=== PATIENT | female | born 1980 | race Caucasian/White ===

== ENCOUNTER 2022-03-24 10:06 | Outpatient (CLI) | payer OTHER, SELFPAY ==
[2022-03-24 14:38] LABS: Cholesterol* 177 mg/dL (90-199); HDL Cholesterol* 61 mg/dL (>=50); LDL Cholesterol Calculated 98 mg/dL (<100); Triglycerides* 91 mg/dL (40-149)
[2022-03-25 15:25] LABS: Chloride* 102 mmol/L (96-114)
[2022-03-25 15:26] LABS: Potassium* 4.7 mmol/L (3.6-5.1); Sodium* 137 mmol/L (135-149)
[2022-03-25 15:28] LABS: Creatinine* 0.9 mg/dL (0.5-1.5); Estimated Glomerular Filt Rate 82 ml/min
[2022-03-25 15:29] LABS: Blood Urea Nitrogen* 21 mg/dL (5-24); Calcium* 9.1 mg/dL (8.4-10.6); Carbon Dioxide* 25 mmol/L (20-32); Glucose* 83 mg/dL (60-115)
== END 2022-03-24 10:07 | disposition home or self-care (01) ==
LOC: LONREF 10:08
PROVIDERS: PCP Family Medicine; Visit Provider Family Medicine
DX: Z01.419 Encounter for gynecological examination (general) (routine) without abnormal findings (principal); Z13.6 Encounter for screening for cardiovascular disorders
CPT/HCPCS: 80048; 80061

== ENCOUNTER 2023-04-15 09:41 | Outpatient (CLI) | payer OTHER, SELFPAY | END 2023-04-15 09:42 | disposition home or self-care (01) | PROVIDERS: PCP Family Medicine; Visit Provider Family Medicine | DX: Z00.00 Encounter for general adult medical examination without abnormal findings (principal); E66.9 Obesity, unspecified; Z13.6 Encounter for screening for cardiovascular disorders; Z13.0 Encounter for screening for diseases of the blood and blood-forming organs and certain disorders involving the immune mechanism; Z13.1 Encounter for screening for diabetes mellitus | CPT/HCPCS: 80048; 80061 ==

== ENCOUNTER 2023-10-27 19:50 | Emergency (ER) | payer OTHER, SELFPAY ==
[2023-10-27 20:05] VITALS: BP 128/85; PULSE 94; RESP 18; TEMP 37.4; O2SAT 97; BMI 34.5
--- NOTE | 2023-10-27 20:21 | CT_ITS ---
Patient: ANGIE VELAZQUEZ Facility:?[facility] Patient ID:?[id number] Site Patient ID:?[id number]. Site :?[id number] Study:?CT-ST Neck W/ 100CC ISOVUE 370-10/27/2023 9:21:24 PM Ordering Physician:LOBITO Final Report: INDICATION: Strep throat. TECHNIQUE: CT images of the neck following intravenous contrast. COMPARISON: None. FINDINGS: Diffuse enlargement and striated enhancement of the palatine tonsils. Slightly more confluent hypoenhancement within the lateral left palatine tonsil (series 2 image 31) may represent edema and/or phlegmon. No discrete peritonsillar abscess. Mild inflammatory stranding in the left parapharyngeal space. There is mild narrowing of the oropharyngeal airway. No retropharyngeal edema. The hypopharynx and larynx are widely patent and without enhancing lesions. No thickening of the epiglottis. No enhancing lesions in the oral cavity or floor of mouth. The parotid and submandibular glands are unremarkable. The thyroid gland is unremarkable. Enlarged bilateral level II lymph nodes demonstrate elongated morphology. Limited images through the brain are without pathologic intracranial enhancement. The paranasal sinuses and mastoid air cells are clear. Multilevel cervical spondylosis. No aggressive osseous lesions. The visualized lungs are clear. IMPRESSION: 1. Diffuse enlargement and striated enhancement of the palatine tonsils, compatible with tonsillitis. Slightly more confluent hypoenhancement within the lateral left palatine tonsil may represent edema and/or phlegmon. No discrete peritonsillar abscess. Mild inflammatory stranding in the left parapharyngeal region. 2. Enlarged bilateral cervical nodes, likely reactive. Please note that all CT scans at this facility use dose modulation, iterative reconstruction, and/or weight-based dosing when appropriate to reduce radiation dose to as low as reasonably achievable. Dictated by Champ King MD @ 10/27/2023 9:31:59 PM Signed by:?Champ King MD @10/27/2023 9:31:59 PM (Electronic Signature)
--- NOTE | 2023-10-27 20:27 | ED.GENADULT ---
HPI - General Adult General Date Seen: 10/27/23 Chief complaint: Unspecified Complaint, Adult Stated complaint: Strep +, shortness of breath, body aches Time Seen by Provider: 10/27/23 19:55 Source: patient Mode of arrival: ambulatory Limitations: no limitations History of Present Illness HPI narrative: Patient is a 43-year-old female presenting to the emergency department for a sore throat, body aches. She states she was diagnosed with strep throat a couple days ago and was started on amoxicillin. Since then she has noticing worsening throat pain. She states it is worse on the left than the right. Her friends told her that she might be having a peritonsillar abscess so she became scared and came to the emergency department to get evaluated. States she has been drinking fluids all day without issue. Taking Tylenol and ibuprofen for pain. Last took Tylenol at 19:00. Had a fever yesterday but not today. Denies chest pain. Does states she has some mild shortness of breath but thinks it might be from her anxiety. Has not had any difficulty managing secretions. Denies headache, lightheadedness, dizziness, weakness, numbness. Has not noticed any changes in her voice. Related Data Home Medications Medication Instructions Recorded Confirmed Collagen PO 03/24/22 08/07/23 ascorbic acid (vitamin C) 500 mg 500 mg PO DAILY 03/24/22 08/07/23 tablet,extended release calcium citrate 250 mg 1 tab PO DAILY 03/24/22 08/07/23 calcium-vitamin D3 5 mcg (200 unit) tablet cetirizine 10 mg tablet 10 mg PO QDAY PRN 03/24/22 08/07/23 cyanocobalamin (vitamin B-12) 3,000 mcg PO 03/24/22 08/07/23 1,000 mcg tablet,extended release ferrous sulfate 325 mg (65 mg 325 mg PO DAILY 03/24/22 08/07/23 iron) tablet multivitamin with minerals 2 tab PO DAILY 03/24/22 08/07/23 (Hair,Skin and Nails tablet) pediatric multivitamin no.17 tab PO BID 03/24/22 08/07/23 (Children's Chew Multivitamin tablet) sumatriptan succinate 100 mg tablet 100 mg PO .As Needed as needed PRN 03/24/22 08/07/23 cranberry 400 mg capsule 400 mg PO QDAY 04/15/23 08/07/23 Previous Rx's Medication Instructions Recorded albuterol sulfate 90 mcg/actuation 2 inh inhalation Q4-6H PRN 04/29/23 aerosol inhaler shortness of breath or wheezing #6.7 grams fluticasone 250 mcg-salmeterol 50 1 inh inhalation BID #6 ea 06/02/23 mcg/dose blistr powdr for inhalation (Wixela Inhub) escitalopram oxalate 20 mg tablet 20 mg PO QDAY #30 tabs 07/15/23 metronidazole 500 mg tablet 500 mg PO TID #21 tabs 09/11/23 Allergies Allergy/AdvReac Type Severity Reaction Status Date / Time terbutaline Allergy Severe Stopped Verified 10/27/23 21:18 breathing Seasonal Allergy Unknown Uncoded 10/27/23 21:18 Review of Systems Status of ROS: Reports: 10 or more systems reviewed and unremarkable except as noted in History and below PFSH PFSH Medical History Nicotine dependence ?F17.200 - Nicotine dependence, unspecified, uncomplicated (ICD-10) Surgical History S/P ovarian cystectomy ?Z98.890 - Other specified postprocedural states (ICD-10) ?Z87.42 - Personal history of other diseases of the female genital tract (ICD-10) Status post tubal ligation ?Z98.51 - Tubal ligation status (ICD-10) Status post nasal septoplasty ?Z98.890 - Other specified postprocedural states (ICD-10) Status post gastric banding surgery ?Z98.84 - Bariatric surgery status (ICD-10) History of cholecystectomy (02/06/09) ?Z90.49 - Acquired absence of other specified parts of digestive tract (ICD-10) History of section (02/06/09) ?Z98.891 - History of uterine scar from previous surgery (ICD-10) Social History Smoking Status: Former smoker How often do you have a drink containing alcohol: never AUDIT-C Alcohol total score: 0 Non-prescribed substance use: denies use Little interest or pleasure in doing things: several days Feeling down, depressed, or hopeless: several days Exam Narrative: Exam Narrative: Const: Well-nourished, Well-developed, in mild distress Eyes: PERRL, no conjunctival injection, and symmetrical lids HENT: Atraumatic external nose and ears. Moist mucous membranes. Erythematous oropharynx with exudates seen on bilateral tonsils right worse than left, uvula midline, tonsillar swelling is a +2 Neck: Symmetric, trachea midline, No thyromegaly. CVS: RRR, No murmurs or gallops. Peripheral pulses 2+ and equal in all extremities RESP: Unlabored respiratory effort. Clear to auscultation bilaterally. GI: Nontender/Nondistended, No rebound or guarding. MSK:Extremities w/o deformity, Normal Active ROM Skin: Warm, Dry. No rashes or lesions. Neuro: Normal Muscle tone, No focal neurological deficits. Psych: Awake, Alert, & Oriented x3. Appropriate mood and affect. Const: Vital Signs, click to edit/add: Vital Signs - 24 hr 10/27/23 20:05 Temperature 99.4 F Pulse Rate [Pulse Oximeter] 94 Respiratory Rate 18 Blood Pressure [Ri ght Upper Arm] 128/85 Pulse Oximetry 97 Oxygen Delivery Me thod Room Air Course Vital Signs Vital signs: Initial Vital Signs Temperature 99.4 F 10/27/23 20:05 Temperature Source Temporal Artery Scan 10/27/23 20:05 Pulse Rate 94 10/27/23 20:05 Respiratory Rate 18 10/27/23 20:05 Blood Pressure 128/85 10/27/23 20:05 Blood Pressure Mean 99 10/27/23 20:05 Blood Pressure Position Sitting 10/27/23 20:05 Pulse Oximetry 97 10/27/23 20:05 Oxygen Delivery Method Room Air 10/27/23 20:05 Vital Signs Temperature 99.4 F 10/27/23 20:05 Pulse Rate 94 10/27/23 20:05 Respiratory Rate 18 10/27/23 20:05 Blood Pressure 128/85 10/27/23 20:05 Pulse Oximetry 97 10/27/23 20:05 Oxygen Delivery Method Room Air 10/27/23 20:05 Temperature 99.4 F 10/27/23 20:05 Pulse Rate 94 10/27/23 20:05 Respiratory Rate 18 10/27/23 20:05 Blood Pressure 128/85 10/27/23 20:05 Pulse Oximetry 97 10/27/23 20:05 Oxygen Delivery Method Room Air 10/27/23 20:05 Medications Administered Medications: Discontinued Medications Generic Name Dose Route Start Last Admin Trade Name Jordan PRN Reason Stop Dose Admin Dexamethasone 10 mg 10/27/23 20:21 10/27/23 20:38 Dexamethasone 4 Mg Tablet PO 10/27/23 20:22 10 mg ONCE ONE Administration Ketorolac Tromethamine 15 mg 10/27/23 20:21 10/27/23 20:37 Ketorolac 15 Mg/Ml Inj IVP 10/27/23 20:22 15 mg ONCE ONE Administration Medical Decision Making MDM Narrative Medical decision making narrative: Patient is a 43 old female presenting for sore throat. Did not think is necessary to retest her for strep as she already tested positive a couple days ago. Will give her dexamethasone to help with the swelling and pain. Also give a dose of Toradol. CBC and BMP ordered. Will do a CT scan soft tissue neck to make sure there is no signs of peritonsillar or other oral and neck space abscesses. She has a white count of 15.25 was always looking well. CMP shows no concerning findings. This elevated white count is likely secondary to her known strep throat. CT scan returned showing no signs of an abscess. There is, as expected, diffuse enlargement and duration the palatine tonsils consistent with tonsillitis. There is is mild narrowing of the oropharyngeal airway but again the patient looks to be breathing well overall. At this time but she was on amoxicillin does not seem to be working so will add a Z-Og to her antibiotics. She is agreeable to this plan. Lab Data Labs: Lab Results 10/27/23 Range/Units 20:37 WBC 15.25 H (4.50-11.00) K/uL RBC 4.16 (4.00-5.20) m/uL Hgb 13.7 (12.0-16.0) gm/dL Hct 40.5 (33.0-51.0) % MCV 97 (80-100) fL MCH 33 (26-34) pg MCHC 34 (32-36) gm/dL RDW Coeff of Kajal 13.0 (11.5-15.5) % Plt Count 269 (140-440) K/uL Neut % (Auto) 82.8 H (42.0-72.0) % Lymph % (Auto) 8.8 L (20-44) % [place] % (Auto) 7.5 (0.0-11.0) % Eos % (Auto) 0.7 (0.0-7.0) % Baso % (Auto) 0.1 (0.0-3.0) % Neut # (Auto) 12.60 H (1.7-7.0) K/uL Lymph # (Auto) 1.30 (0.90-2.90) K/uL [place] # (Auto) 1.10 H (0.00-0.90) K/UL Eos # (Auto) 0.10 (0.00-0.50) K/uL Baso # (Auto) 0.00 (0.00-0.30) K/uL Abs Immat Gran (auto) 0.00 (0.00-0.30) K/uL Imm/Tot Granulo (auto) 0.1 % Sodium 139 (135-149) mmol/L Potassium 3.5 L (3.6-5.1) mmol/L Chloride 106 (96-114) mmol/L Carbon Dioxide 26 (20-32) mmol/L Anion Gap 7 (7-15) mEq/L BUN 14 (5-24) mg/dL Creatinine 0.8 (0.5-1.5) mg/dL Estimated Creat Clear 88.18 Estimated GFR 94 ml/min Glucose 124 H (60-115) mg/dL Calcium 8.9 (8.4-10.6) mg/dL Imaging Data CT scan soft tissue: Radiologist's impression: 1. Diffuse enlargement and striated enhancement of the palatine tonsils, compatible with tonsillitis. Slightly more confluent hypoenhancement within the lateral left palatine tonsil may represent edema and/or phlegmon. No discrete peritonsillar abscess. Mild inflammatory stranding in the left parapharyngeal region. 2. Enlarged bilateral cervical nodes, likely reactive. Please note that all CT scans at this facility use dose modulation, iterative reconstruction, and/or weight-based dosing when appropriate to reduce radiation dose to as low as reasonably achievable. Dictated by Champ King MD @ 10/27/2023 9:31:59 PM Discharge Plan Discharge Clinical Impression: Strep throat Patient Disposition: Home, Self-Care Condition: Stable Instructions: Strep Throat (DC) Additional Instructions: There is no signs of abscess on your imaging. I will add another antibiotic. supervisor litharge the z pack from [employer] Take along saw the amoxicillin. Return for new or worsening symptoms. Prescriptions: No Action sumatriptan succinate 100 mg tablet 100 mg PO .As Needed as needed PRN Rx Instructions: ONE TAB AT ONSET OF HEADACHE, MAY REPEAT ONCE IN 2 HRS, MAX 200 MG/24 HRS cetirizine 10 mg tablet 10 mg PO QDAY PRN ascorbic acid (vitamin C) 500 mg tablet extended release 500 mg PO DAILY calcium citrate-vitamin D3 250 mg-5 mcg (200 unit) tablet 1 tab PO DAILY ferrous sulfate 325 mg (65 mg iron) tablet 325 mg PO DAILY Children's Chew Multivitamin Tablet,Chewable PO BID cyanocobalamin (vitamin B-12) 1,000 mcg tablet extended release 3,000 mcg PO Collagen PO Hair,Skin and Nails Tablet 2 tab PO DAILY Rx Instructions: administer with a meal escitalopram oxalate 20 mg tablet 20 mg PO QDAY Qty: 30 5RF cranberry 400 mg capsule 400 mg PO QDAY Rx Instructions: administer with a meal albuterol sulfate 90 mcg/actuation HFA aerosol inhaler 2 inh inhalation Q4-6H PRN (Reason: shortness of breath or wheezing) Qty: 6.7 5RF fluticasone propion-salmeterol [Wixela Inhub] 250-50 mcg/dose blister with device 1 inh inhalation BID Qty: 6 0RF metronidazole 500 mg tablet 500 mg PO TID Qty: 21 0RF Follow Up/Referrals: Vinay Crum MD [Primary Care Provider] - Stand Alone Forms: [employer] Info Instructions
[2023-10-27] MEDS: KETOROLAC 15 MG/ML inj IVP (20:37)
[2023-10-27] MEDS: dexAMETHasone 4 MG TABLET 10 MG PO (20:38)
[2023-10-27 20:52] LABS: Basophils Percent Auto 0.1 % (0.0-3.0); Eosinophils Percent Auto 0.7 % (0.0-7.0); Hematocrit 40.5 % (33.0-51.0); Hemoglobin* 13.7 gm/dL (12.0-16.0); Immature Granulocytes Pct Auto 0.1 %; Lymphocytes Percent Auto 8.8 % (20-44); Mean Corpuscular HGB Conc 34 gm/dL (32-36); Mean Corpuscular Hemoglobin 33 pg (26-34); Mean Corpuscular Volume 97 fL (80-100); Monocytes Percent Auto 7.5 % (0.0-11.0); Neutrophils Percent Auto 82.8 % (42.0-72.0); Platelet Count* 269 K/uL (140-440); Red Blood Count 4.16 m/uL (4.00-5.20); White Blood Count* 15.25 K/uL (4.50-11.00)
[2023-10-27 20:53] LABS: Slide Review Reflex No
[2023-10-27 21:05] LABS: Chloride* 106 mmol/L (96-114); Sodium* 139 mmol/L (135-149)
[2023-10-27 21:06] LABS: Potassium* 3.5 mmol/L (3.6-5.1)
[2023-10-27 21:08] LABS: Creatinine* 0.8 mg/dL (0.5-1.5); Est. Creatinine Clearance* 88.18; Estimated Glomerular Filt Rate 94 ml/min
[2023-10-27 21:09] LABS: Anion Gap 7 mEq/L (7-15); Blood Urea Nitrogen* 14 mg/dL (5-24); Calcium* 8.9 mg/dL (8.4-10.6); Carbon Dioxide* 26 mmol/L (20-32); Glucose* 124 mg/dL (60-115)
== END 2023-10-27 21:54 | disposition home or self-care (01) ==
PROVIDERS: Emergency Provider Student in an Organized Health Care Education/Training Program; PCP Family Medicine
DX: J02.0 Streptococcal pharyngitis (principal)
CPT/HCPCS: 36415; 70491; 80048; 85025; 99283; 99284; 99285; A9270; J1885; Q9967

== ENCOUNTER 2025-04-25 13:23 | Outpatient (CLI) | payer OTHER, SELFPAY | END 2025-04-25 13:24 | disposition home or self-care (01) | PROVIDERS: PCP Family Medicine; Visit Provider Family Medicine | DX: Z13.1 Encounter for screening for diabetes mellitus (principal); Z13.6 Encounter for screening for cardiovascular disorders; Z13.29 Encounter for screening for other suspected endocrine disorder | CPT/HCPCS: 80048; 80061; 84443 ==